=== PATIENT | male | born 1960 | race African-American/Black ===

== ENCOUNTER 2020-04-30 12:21 | Emergency (ER) | payer OTHER ==
[~2020-04-30] VITALS: Ht 180.3 cm; Wt 96.0 kg
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
[2020-04-30 13:01] VITALS: BP 125/79
== END 2020-04-30 13:02 | disposition home or self-care (01) ==
LOC: ER 12:21
DX: S09.90XA Unspecified injury of head, initial encounter (principal); W51.XXXA Accidental striking against or bumped into by another person, initial encounter; Y93.89 Activity, other specified; Y92.89 Other specified places as the place of occurrence of the external cause; Y99.0 Civilian activity done for income or pay
CPT/HCPCS: 99281

== ENCOUNTER 2021-04-11 19:38 | Emergency (ER) | payer OTHER ==
[~2021-04-11] VITALS: Ht 180.3 cm; Wt 100.0 kg
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
[2021-04-11] MEDS ORDERED: AMOXICILLIN/K CLAV 875/125MG TABLET. PO ONE (19:45)
[2021-04-11 20:04] VITALS: BP 150/93
[2021-04-11] MEDS ORDERED: AMOX1TAB61 PO (20:17)
== END 2021-04-11 20:18 | disposition home or self-care (01) ==
LOC: ER 19:38
DX: S60.411A Abrasion of left index finger, initial encounter (principal); W50.3XXA Accidental bite by another person, initial encounter; Y93.89 Activity, other specified; Y92.89 Other specified places as the place of occurrence of the external cause; Y99.8 Other external cause status
CPT/HCPCS: 99283